=== PATIENT | male | born 1990 | race African-American/Black ===

== ENCOUNTER 2018-03-28 18:15 | Emergency (ER) | payer SELFPAY ==
[2018-03-28 18:29] VITALS: BP 133/90
[2018-03-28 19:05] LABS: Basophils # (Auto) 0.1 K/mm3 (0.0-0.1); Basophils % (Auto) 1.1 % (0.0-1.8); Eosinophils # (Auto) 0.1 K/mm3 (0.0-0.4); Eosinophils % (Auto) 0.7 % (0.0-4.3); Lymphocytes # (Auto) 1.9 K/mm3 (1.2-5.4); Lymphocytes % (Auto) 27.6 % (13.4-35.0); Mean Corpuscular HGB Conc 35 % (32-34); Mean Corpuscular Hemoglobin 32 pg (28-32); Mean Corpuscular Volume 90 fl (84-94); Monocytes # (Auto) 0.4 K/mm3 (0.0-0.8); Monocytes % (Auto) 6.5 % (0.0-7.3); Platelet Count 123 K/mm3 (140-440); Red Blood Count 5.56 M/mm3 (3.65-5.03); Red Cell Distribution Width 12.4 % (13.2-15.2)
[2018-03-28 19:07] LABS: Hemoglobin 17.7 gm/dl (11.8-15.2)
[2018-03-28 19:20] LABS: BUN/Creatinine Ratio 30; Blood Urea Nitrogen 12 mg/dL (9-20); Calcium 9.8 mg/dL (8.4-10.2); Hemolysis Index 86
[2018-03-28 19:41] LABS: Bilirubin,Urine NEG (Negative); Blood,Urine NEG (Negative); Color,Urine Yellow (Yellow); Protein,Urine <15 mg/dL mg/dL (Negative); Urobilinogen,Urine < 2.0 mg/dL (<2.0)
[2018-03-29] MEDS ORDERED: NACL 0.9% 1000 ML 1,000 ML IV ONE (00:50)
[2018-03-29] MEDS ORDERED: HumuLIN R IV ONE (01:08)
--- NOTE | 2018-03-29 01:19 | Emergency Department Report ---
HPI - General Chief Complaint: Hyperglycemia Time Seen by Provider: 03/28/18 23:32 - HPI HPI: 27-year-old male presents to the emergency department with 2 complaints. First, the patient complains of some discomfort and a rash around his uncircumcised penis has been going on for the past few days. He tried some [id number] nonspecific ointment or cream without much relief. He has a little bit of burning with urination but denies any discharge from the penis or any pain or rash to the scrotum/testicles. The patient went to see a physician regarding his rash and had a fingerstick done secondary to a history of diabetes and was found to have hyperglycemia. He was sent into the emergency department for further evaluation. The patient says that he was diagnosed with diabetes about one year ago but he has not placed any medication because he never followed up with that physician at that time. He does admit to some increased thirst and increased urinary frequency. He denies any fever, nausea, vomiting, chest pain, shortness of breath. ED Past Medical Hx - Past Medical History Hx Diabetes: Yes - Surgical History Past Surgical History?: No - Social History Smoking Status: Current Every Day Smoker Substance Use Type: None - Medications Home Medications: Home Medications Medication Instructions Recorded Confirmed Last Taken Type Nystatin [Nystop Powder] 1 applicatio TP BID #1 bottle 03/29/18 Unknown Rx Sulfamethoxazole/Trimethoprim 1 each PO BID #14 tablet 03/29/18 Unknown Rx [Bactrim DS TAB] metFORMIN [Glucophage] 500 mg PO BID #60 tablet 03/29/18 Unknown Rx ED Review of Systems ROS: Stated complaint: HIGH BP/INFECTION Other details as noted in HPI Comment: All other systems reviewed and negative Constitutional: denies: chills, fever Eyes: denies: eye pain, eye discharge, vision change ENT: denies: ear pain, throat pain Respiratory: denies: cough, shortness of breath, wheezing Cardiovascular: denies: chest pain, palpitations Endocrine: increased thirst, increased urine Gastrointestinal: denies: abdominal pain, vomiting Genitourinary: dysuria, frequency. denies: testicular pain Musculoskeletal: denies: back pain, joint swelling, arthralgia Skin: rash. denies: pruritus Neurological: denies: headache, weakness, paresthesias Physical Exam - Physical Exam Vital Signs: Vital Signs 03/28/18 18:25 Temperature 98.3 F Pulse Rate 110 H Respiratory 16 Rate Blood Pressure 133/90 O2 Sat by Pulse 100 Oximetry Physical Exam: GENERAL: The patient is well-developed well-nourished. HENT: Normocephalic. Atraumatic. Patient has moist mucous membranes. EYES: Extraocular motions are intact. Pupils equal reactive to light bilaterally. NECK: Supple. Trachea is midline. CHEST/LUNGS: Clear to auscultation. There is no respiratory distress noted. HEART/CARDIOVASCULAR: Regular. There is no tachycardia. There is no murmur. ABDOMEN: Abdomen is soft, nontender. Patient has normal bowel sounds. There is no abdominal distention. SKIN: Skin is warm and dry. There is a very small amount of erythema and some mild white discharge seen around the glans of the penis when the foreskin is retracted. NEURO: The patient is awake, alert, and oriented. The patient is cooperative. The patient has no focal neurologic deficits. The patient has normal speech. MUSCULOSKELETAL: There is no tenderness or deformity. There is no limitation range of motion. There is no evidence of acute injury. ED Course Vital Signs 03/28/18 18:25 Temperature 98.3 F Pulse Rate 110 H Respiratory 16 Rate Blood Pressure 133/90 O2 Sat by Pulse 100 Oximetry ED Medical Decision Making - Lab Data Result diagrams: 03/28/18 18:39 03/28/18 18:39 - Medical Decision Making The patient presented with concern for elevated blood sugar level and a rash to the penis. Apparently the patient was diagnosed as diabetic about one year ago but has not followed up and is not on any medications. He's been having some increased thirst and increased urination. Blood sugar was about 370. No elevated anion gap so low suspicion for diabetic ketoacidosis. Patient was given IV fluid and IV insulin and his blood sugar came down closer to about 320. The rash is very mild. There is a small amount of erythema and some white mild discharge around the glans of the penis when the foreskin is retracted. This could be a little bit of kamilla. The patient will be placed on nystatin powder and was given oral antibiotics. The patient is going to be started on metformin. We had a long discussion about dietary and lifestyle changes to make including low carbohydrates, low starches and low sugar products. He is going to work on exercise. He has been given some referrals for primary care. His says that they are to have a glucometer at home to check the sugar. The patient was signed out to the overnight physician and it appears that the patient was stable upon discharge with these treatments. - Differential Diagnosis DKA, HHNK, balanitis, kamilla rash Critical Care Time: No Critical care attestation.: If time is entered above; I have spent that time in minutes in the direct care of this critically ill patient, excluding procedure time. ED Disposition Clinical Impression: Candidiasis of penis Hyperglycemia due to type 2 diabetes mellitus Qualifiers: Diabetes mellitus residential insulin use: without residential use Qualified Code(s ): E11.65 - Type 2 diabetes mellitus with hyperglycemia Disposition: DC-01 TO HOME OR SELFCARE Is pt being admited?: No Condition: Stable Instructions: Diabetes Mellitus Type 2 in Adults (ED), Diabetic Hyperglycemia ( ED) Additional Instructions: Please follow up with a primary care physician regarding your diabetes and your rash. I am starting him on a medication to treat your diabetes called metformin. This medication is to be taken twice daily. Do not skip meals while taking this medication. However, you should try and stay away from foods that are high in sugar, carbohydrates and starches. Keep a blood sugar log. Return to the emergency Department with any worsening of your symptoms or any acute distress. Prescriptions: metFORMIN [Glucophage] 500 mg PO BID #60 tablet Nystatin [Nystop Powder] 1 applicatio TP BID #1 bottle Sulfamethoxazole/Trimethoprim [Bactrim DS TAB] 1 each PO BID #14 tablet Referrals: PRIMARY DENNIS, [Primary Care Provider] - 3-5 Days ASHLEY GAMOBA MD [Staff Physician] - 3-5 Days [facility] [Outside] - [facility] - 3[facility]5 Days [facility] [Outside] - 3-5 Days Forms: Work/School Release Form(ED) Time of Disposition: 01:59 Print Language: KINYARWANDA
== END 2018-03-29 03:30 | disposition home or self-care (01) ==
LOC: ED 18:15
DX: B37.49 Other urogenital candidiasis (principal); E11.65 Type 2 diabetes mellitus with hyperglycemia; F17.200 Nicotine dependence, unspecified, uncomplicated
CPT/HCPCS: 36415; 80048; 81001; 82805; 82962; 85025; 96361; 96374; 99284; J7030; J1815